=== PATIENT | female | born 1995 | race Caucasian/White ===

== ENCOUNTER 2020-08-25 18:45 | Emergency (ER) | payer OTHER ==
[~2020-08-25] VITALS: Ht 172.7 cm; Wt 68.1 kg
[2020-08-25] MEDS ORDERED: AMOX1TAB61 PO (19:40)
--- NOTE | 2020-08-25 19:40 | PHYS DOC ---
Past Medical History Past Medical History: Other Additional Past Medical Histor: EPLIPSY (SONY BACON APRN) Past Surgical History: Other Additional Past Surgical Histo: JAW SURGERY (SONY BACON APRN) Smoking Status: Never Smoker Alcohol Use: None (SONY BACON APRN) General Adult EDM: Chief Complaint: ANIMAL BITE HPI: HPI: Patient is a 24 year old female patient presenting to the ED today to be evaluated for dog bites. Patient states she was walking her dog and another dog tried attacking her dog. She states in the process of trying to separate them she got beat. (SONY BACON APRN) Review of Systems: Review of Systems: Constitutional: Denies fever or chills. [] Musculoskeletal: Denies back pain or joint pain. [] Integument: Reports dog bite Neurologic: Denies headache, focal weakness or sensory changes. [] Psychiatric: Denies depression or anxiety. [] (SONY BACON APRN) Heart Score: Risk Factors: Risk Factors: DM, Current or recent (<one month) smoker, HTN, HLP, family history of CAD, obesity. Risk Scores: Score 0 - 3: 2.5% MACE over next 6 weeks - Discharge Home Score 4 - 6: 20.3% MACE over next 6 weeks - Admit for Clinical Observation Score 7 - 10: 72.7% MACE over next 6 weeks - Early Invasive Strategies (SONY BACON APRN) Physical Exam: PE: Constitutional: Well developed, well nourished, no acute distress, non-toxic appearance. [] Skin: Right tricep region with a tiny puncture wound approximately 0.2 x 0.2 cm, similar wound noted on the left posterior mid thigh. Scratches noted on the left forearm. Back: No tenderness, no CVA tenderness. [] Extremities: No tenderness, no cyanosis, no clubbing, ROM intact, no edema. [] Neurologic: Alert and oriented X 3, normal motor function, normal sensory function, no focal deficits noted. [] Psychologic: Affect normal, judgement normal, mood normal. [] (SONY BACON APRN) Current Patient Data: Vital Signs: Vital Signs Date Time Temp Pulse Resp B/P (MAP) Pulse Ox O2 Delivery O2 Flow Rate FiO2 08/25/20 19:15 98.4 110 20 130/78 (95) 98 Room Air 98.4 (SONY BACON APRN) EKG: EKG: [] (SONY BACON APRN) Radiology/Procedures: Radiology/Procedures: [] (SONY BACON APRN) Course & Med Decision Making: Course & Med Decision Making Pertinent Labs and Imaging studies reviewed. (See chart for details) This is a 24-year-old female patient presenting to the ED today with a superficial dog bite to the right upper extremity, left thigh and dog scratches to the left forearm. Patient was given tetanus. Wounds will be cleaned at home and Neosporin applied to them. Discharged on Augmentin. Return precautions provided. (SONY BACON APRN) Course & Med Decision Making I have reviewed the PA/SCREEN VENT BINDER's note and Plan of Care. I was available for consultation as needed during the patient's visit in the emergency department. I agree with the clinical impression, plans and disposition. (JANEE CORREA MD) Dragon Disclaimer: Dragon Disclaimer: This electronic medical record was generated, in whole or in part, using a voice recognition dictation system. (SONY BACON APRN) Departure Departure Impression: Primary Impression: Dog bite of arm Qualified Codes: S41.151A - Open bite of right upper arm, initial encounter; W54.0XXA - Bitten by dog, initial encounter Additional Impression: Dog bite of left lower leg Qualified Codes: S81.852A - Open bite, left lower leg, initial encounter; W54.0XXA - Bitten by dog, initial encounter Disposition: 01 DC HOME SELF CARE/HOMELESS Condition: STABLE Patient Instructions: Animal Bite, [id number] Additional Instructions: You were seen for dog bites and scratches. Please go home and take a really good shower as we discussed with normal soap and water. Apply Neosporin to the bites. Take the prescribed antibiotic until completed. Monitor the area for any worsening condition including increased redness, warmth, yellow drainage from the area and return to the ED if they occur or see your own doctor. Scripts Amoxicillin/Potassium Clav (AUGMENTIN 875-125 TABLET) 1 Each Tablet 1 TAB PO BID for 10 Days, #20 TAB 0 Refills Prov: SONY BACON APRN 08/25/20 SONY BACON APRN Aug 25, 2020 19:40 JANEE CORREA MD Aug 26, 2020 01:15
[2020-08-25] MEDS ORDERED: DIPH,PERTUSS(ACELL),TET VAC/PF 0.5 ML SYRINGE. VAX IM ONE (19:45)
[2020-08-25 19:51] VITALS: BP 127/75
== END 2020-08-25 20:05 | disposition home or self-care (01) ==
LOC: ER 18:45
DX: S41.151A Open bite of right upper arm, initial encounter (principal); S81.852A Open bite, left lower leg, initial encounter; Z98.890 Other specified postprocedural states; W54.0XXA Bitten by dog, initial encounter; Y93.89 Activity, other specified; Y92.89 Other specified places as the place of occurrence of the external cause; Y99.8 Other external cause status
CPT/HCPCS: 90471; 90715; 99283

== ENCOUNTER 2021-04-22 00:24 | Emergency (ER) | payer OTHER ==
[~2021-04-22] VITALS: Ht 170.2 cm; Wt 63.3 kg
[~2021-04-22 00:24] MED LIST: AMOX1TAB61 PO
--- NOTE | 2021-04-22 01:37 | PHYS DOC ---
Past Medical History Past Medical History: No Pertinent History, Other Additional Past Medical Histor: EPLIPSY Past Surgical History: No Surgical History, Other Additional Past Surgical Histo: JAW SURGERY Smoking Status: Never Smoker Alcohol Use: None General Adult EDM: Chief Complaint: ABDOMINAL PAIN IN HPI: HPI: Patient is a 25 year old female who presented to ER due to right lower abdominal pain started 2 days ago. Patient denies any fever, no nausea vomiting, no vaginal bleeding or discharge. Patient states she is 18 weeks . Patient said the pain comes and goes, sharp in nature. She said she has been eating fine. Review of Systems: Review of Systems: Constitutional: Denies fever or chills. [] Eyes: Denies change in visual acuity. [] HENT: Denies nasal congestion or sore throat. [] Respiratory: Denies cough or shortness of breath. [] Cardiovascular: Denies chest pain or edema. [] GI: Positive for right side LOWER abdominal pain : Denies dysuria. [] Musculoskeletal: Denies back pain or joint pain. [] Integument: Denies rash. [] Neurologic: Denies headache, focal weakness or sensory changes. [] Endocrine: Denies polyuria or polydipsia. [] Lymphatic: Denies swollen glands. [] Psychiatric: Denies depression or anxiety. [] Heart Score: C/O Chest Pain: N/A Risk Factors: Risk Factors: DM, Current or recent (<one month) smoker, HTN, HLP, family history of CAD, obesity. Risk Scores: Score 0 - 3: 2.5% MACE over next 6 weeks - Discharge Home Score 4 - 6: 20.3% MACE over next 6 weeks - Admit for Clinical Observation Score 7 - 10: 72.7% MACE over next 6 weeks - Early Invasive Strategies Allergies: Allergies: Allergies Coded Allergies Type Severity Reaction Last Updated Verified No Known Drug Allergies 08/25/20 No Physical Exam: PE: Constitutional: Well developed, well nourished, no acute distress, non-toxic appearance. [] HENT: Normocephalic, atraumatic, bilateral external ears normal, oropharynx moist, no oral exudates, nose normal. [] Eyes: PERRLA, EOMI, conjunctiva normal, no discharge. [] Neck: Normal range of motion, no tenderness, supple, no stridor. [] Cardiovascular:Heart rate regular rhythm, no murmur [] Lungs & Thorax: Bilateral breath sounds clear to auscultation [] Abdomen: Bowel sounds normal, soft, THERE IS PERIUMBILICAL tenderness to palpation, no masses, no pulsatile masses. [] Skin: Warm, dry, no erythema, no rash. [] Back: No tenderness, no CVA tenderness. [] Extremities: No tenderness, no cyanosis, no clubbing, ROM intact, no edema. [] Neurologic: Alert and oriented X 3, normal motor function, normal sensory function, no focal deficits noted. [] Psychologic: Affect normal, judgement normal, mood normal. [] Current Patient Data: Labs: Laboratory Tests Test 04/22/21 01:39 04/22/21 01:40 04/22/21 02:10 04/22/21 02:17 Urine Collection Type Unknown Urine Color Yellow Urine Clarity Clear Urine pH 5.5 Urine Specific [place] >=1.030 Urine Protein Negative mg/dL Urine Glucose (UA) Negative mg/dL Urine Ketones (Stick) >=80 mg/dL Urine Blood Negative Urine Nitrite Negative Urine Bilirubin Small Urine Urobilinogen Dipstick 0.2 mg/dL Urine Leukocyte Esterase Negative Urine RBC 0 /HPF Urine WBC 1-4 /HPF Urine Squamous Epithelial Cells Mod /LPF Urine Bacteria Few /HPF Urine Mucus Mod /LPF Bedside Urine HCG, Qualitative Hcg positive Hcg positive White Blood Count 9.8 x10^3/uL Red Blood Count 4.49 x10^6/uL Hemoglobin 12.2 g/dL Hematocrit 36.7 % Mean Corpuscular Volume 82 fL Mean Corpuscular Hemoglobin 27 pg Mean Corpuscular Hemoglobin Concent 33 g/dL Red Cell Distribution Width 15.9 % Platelet Count 261 x10^3/uL Neutrophils (%) (Auto) 74 % Lymphocytes (%) (Auto) 20 % Monocytes (%) (Auto) 6 % Eosinophils (%) (Auto) 0 % Basophils (%) (Auto) 0 % Neutrophils # (Auto) 7.2 x10^3/uL Lymphocytes # (Auto) 2.0 x10^3/uL Monocytes # (Auto) 0.5 x10^3/uL Eosinophils # (Auto) 0.0 x10^3/uL Basophils # (Auto) 0.0 x10^3/uL Maternal Serum HCG Beta Subunit 7976 mIU/mL Sodium Level 140 mmol/L Potassium Level 3.6 mmol/L Chloride Level 103 mmol/L Carbon Dioxide Level 25 mmol/L Anion Gap 12 Blood Urea Nitrogen 8 mg/dL Creatinine 0.6 mg/dL Estimated GFR (Cockcroft-Gault) 120.8 BUN/Creatinine Ratio 13 Glucose Level 101 mg/dL Calcium Level 8.4 mg/dL Total Bilirubin 0.3 mg/dL Aspartate Amino Transf (AST/SGOT) 14 U/L Alanine Aminotransferase (ALT/SGPT) 15 U/L Alkaline Phosphatase 55 U/L Total Protein 6.9 g/dL Albumin 2.9 g/dL Albumin/Globulin Ratio 0.7 Current Medications Medications (Trade) Dose Ordered Sig/Chivo Route PRN Reason Start Time Stop Time Status Last Admin Dose Admin Sodium Chloride 1,000 ml @ 1,000 mls/hr 1X ONCE IV 04/22/21 02:30 04/22/21 03:29 04/22/21 02:16 EKG: EKG: [] Radiology/Procedures: Radiology/Procedures: [][facility] [address] [place] [address] IMAGING REPORT Signed PATIENT: SLOANE SY MACCOUNT: [id number] : 1995 LOCATION: ER AGE: 25 SEX: F EXAM STATUS: REG ER ORD. PHYSICIAN: ABIMAEL JOHNSON DO REASON: RLQ ABDOMINAL PAIN, EVALUATE FOR APPENDICITIS PROCEDURE: RIGHT LOWER QUANDRANT Examination: Obstetric ultrasound limited abdomen ultrasound abdomen right lower quadrant limited HISTORY: History of right lower quadrant abdominal pain COMPARISON: None available. FINDINGS: Single living intrauterine identified with heart rate of 144 bpm. The biparietal diameter measures 4.2 cm corresponding to 18 weeks and 6 days. Head circumference measures 15.9 cm corresponding to 18 weeks and 5 days. The abdominal circumference measures 12.9 cm corresponding to 18 weeks and 4 days. Femur length measures 2.6 cm corresponding to 18 weeks and 0 days. Head circumference to abdominal circumference ratio 1.23 Estimated weight 235 g. Gestational age 8 weeks and 4 days with estimated date of delivery by ultrasound 09/19/2021. The appendix could not be visualized right lower quadrant abdomen due to bowel gas (no rebound tenderness elicited). IMPRESSION: 1. The appendix could not be visualized right lower quadrant abdomen due to bowel gas (no rebound tenderness elicited). 2. Single living intrauterine as described above. Electronically signed by: Miguel Dubon MD (04/22/2021 3:05 AM) [id number] DICTATED and SIGNED BY: MIGUEL DUBON MD DATE: 04/22/21 [id number] 0 Course & Med Decision Making: Course & Med Decision Making Pertinent Labs and Imaging studies reviewed. (See chart for details) Patient is a 25-year-old female who present to ER due to abdominal pain, sharp in nature off and on for the 2 days there was no fever, her white blood cell count was normal. Ultrasound of abdomen did not show the appendix but there was no tenderness to palpation there on examination. Pelvic ultrasound showed an IUP of 18 with 5 days with a heart tones 144. Patient vital signs was stable. Patient was discharged in normal condition. Appendicitis was unlikely however patient was given instructions to come back to ER if she has worsening pain with fever... Patient was amenable to plan Dragon Disclaimer: Dragon Disclaimer: This electronic medical record was generated, in whole or in part, using a voice recognition dictation system. Departure Departure Impression: Primary Impression: Abdominal pain during Disposition: 01 HOME / SELF CARE / HOMELESS Condition: STABLE Referrals: NO PCP (PCP) Follow up with your OB DOCTOR THIS WEEK. Patient Instructions: Abdominal Pain During Additional Instructions: Thank you for visiting our Emergency Department. We appreciate you trusting us with your care. If any additional problems come up don't hesitate to return to visit us. Please follow up with your primary care provider so they can plan a dditional care if needed and know about the problem that you had. If symptoms worsen come back to the Emergency Department. Any concerning symptoms that start such as chest pain, shortness of air, weakness or numbness on one side of the body, running high fevers or any other concerning symptoms return to the ER. ABIMAEL JOHNSON DO Apr 22, 2021 01:37
[2021-04-22 01:49] LABS: BILIRUBIN,URINE SMALL (NEG); CLARITY,URINE CLEAR; COLOR,URINE YELLOW; NITRITE,URINE NEGATIVE (NEG); PH,URINE 5.5 (<5.0-8.0); PROTEIN,URINE NEGATIVE (NEG-TRACE); UROBILINOGEN,URINE 0.2 mg/dL (0.2 mg/dL)
[2021-04-22 02:02] LABS: BACTERIA,URINE FEW /HPF (0-FEW); RBC,URINE 0 /HPF (0-2)
[2021-04-22 02:21] LABS: BASO % 0 % (0-3); EOS % 0 % (0-3); HEMATOCRIT 36.7 % (36.0-47.0); HEMOGLOBIN 12.2 g/dL (12.0-15.5); LYMPH % 20 % (24-48); MEAN CORPUSCULAR HEMOGLOBIN 27 pg (25-35); MEAN CORPUSCULAR HGB CONC 33 g/dL (31-37); MEAN CORPUSCULAR VOLUME 82 fL (79-100); MONO # 0.5 x10^3/uL (0.0-1.1); MONO % 6 % (0-9); NEUT # 7.2 x10^3/uL (1.8-7.7); NEUT % 74 % (31-73); PLATELET COUNT 261 x10^3/uL (140-400); RED BLOOD COUNT 4.49 x10^6/uL (3.50-5.40); RED CELL DISTRIBUTION WIDTH 15.9 % (11.5-14.5); WHITE BLOOD COUNT 9.8 x10^3/uL (4.0-11.0)
[2021-04-22] MEDS ORDERED: IV NORMAL SALINE 1000ML BAG 1,000 ML IV ONE (02:30)
[2021-04-22 02:32] LABS: CALCIUM 8.4 mg/dL (8.5-10.1); CREATININE 0.6 mg/dL (0.6-1.0); GFR 120.8; POTASSIUM 3.6 mmol/L (3.5-5.1)
[2021-04-22 02:37] LABS: ALBUMIN 2.9 g/dL (3.4-5.0); ALBUMIN/GLOBULIN RATIO 0.7 (1.0-1.7); TOTAL BILIRUBIN 0.3 mg/dL (0.2-1.0); TOTAL PROTEIN 6.9 g/dL (6.4-8.2)
--- NOTE | 2021-04-22 03:07 | RAD ---
Examination: Obstetric ultrasound limited abdomen ultrasound abdomen right lower quadrant limited HISTORY: History of right lower quadrant abdominal pain COMPARISON: None available. FINDINGS: Single living intrauterine identified with heart rate of 144 bpm. The biparietal diameter measures 4.2 cm corresponding to 18 weeks and 6 days. Head circumference measures 15.9 cm corresponding to 18 weeks and 5 days. The abdominal circumference measures 12.9 cm corresponding to 18 weeks and 4 days. Femur length measures 2.6 cm corresponding to 18 weeks and 0 days. Head circumference to abdominal circumference ratio 1.23 Estimated weight 235 g. Gestational age 8 weeks and 4 days with estimated date of delivery by ultrasound 09/19/2021. The appendix could not be visualized right lower quadrant abdomen due to bowel gas (no rebound tender ness elicited). IMPRESSION: 1. The appendix could not be visualized right lower quadrant abdomen due to bowel gas (no rebound ten derness elicited). 2. Single living intrauterine as described above. Electronically signed by: Miguel Dubon MD (04/22/2021 3:05 AM) [id number]
[2021-04-22 03:54] VITALS: BP 102/59
== END 2021-04-22 04:00 | disposition home or self-care (01) ==
LOC: ER 00:24
DX: O26.892 Other specified pregnancy related conditions, second trimester (principal); R10.31 Right lower quadrant pain; Z3A.18 18 weeks gestation of pregnancy
CPT/HCPCS: 36415; 76815; 80053; 81001; 81025; 84702; 85025; 93975; 96360; 99284; J7030